=== PATIENT | male | born 1995 | race Caucasian/White ===

== ENCOUNTER 2020-05-20 03:14 | Emergency (ER) | payer OTHER ==
[~2020-05-20] VITALS: Ht 190.5 cm; Wt 79.4 kg
[2020-05-20 03:38] LABS: BASOPHILS ABSOLUTE AUTO 0.03 K/mm3 (0.00-0.23); BASOPHILS PERCENT AUTO 1 % (0-2); EOSINOPHILS ABSOLUTE AUTO 0.21 K/mm3 (0.00-0.68); EOSINOPHILS PERCENT AUTO 3 % (0-6); Hematocrit 44.7 % (37.0-53.0); Hemoglobin 15.3 g/dL (13.5-17.5); IMMATURE GRAN ABSOLUTE AUTO 0.01 K/mm3 (0.00-0.10); IMMATURE GRAN PERCENT AUTO 0 % (0-1); LYMPHOCYTES ABSOLUTE AUTO 2.92 K/mm3 (0.84-5.20); LYMPHOCYTES PERCENT AUTO 45 % (21-46); MONOCYTES ABSOLUTE AUTO 0.48 K/mm3 (0.16-1.47); MONOCYTES PERCENT AUTO 7 % (4-13); Mean Corpuscular HGB 29.9 pg (26.0-34.0); Mean Corpuscular HGB Conc 34.2 g/dL (31.5-36.5); Mean Corpuscular Volume 88 fL (80-100); Mean Platelet Volume 11.1 fL (9.1-12.4); NEUTROPHILS PERCENT AUTO 44 % (41-73); Platelet Count 163 K/mm3 (150-400); RDW Coefficient Variation 11.7 % (11.7-14.2); RDW Standard Deviation 37.4 fL (35.1-46.3); Red Blood Cell Count 5.11 M/mm3 (4.30-5.90); White Blood Cell Count 6.55 K/mm3 (4.00-11.30)
[2020-05-20] MEDS ORDERED: Vitamin B-121000 MCG PO (03:45)
[2020-05-20] MEDS ORDERED: THERA-D2000 UNIT PO (03:45)
[2020-05-20] MEDS ORDERED: ASCO500 PO (03:46)
[2020-05-20 04:01] LABS: Alanine Aminotransfer (ALT/SGP 30 U/L (12-78); Albumin, Blood 4.3 g/dL (3.4-5.0); Albumin/Globulin Ratio 1.5 (0.8-1.8); Alk Phos 44 U/L (50-136); Anion Gap 8 mmol/L (6-16); Aspartate Aminotrans (AST/SGOT 13 U/L (12-37); Bilirubin, Total 0.5 mg/dL (0.1-1.0); Blood Urea Nitrogen 13 mg/dL (8-24); Bun/Creatinine Ratio 14.5 (12.0-20.0); CO2, Blood 25 mmol/L (21-32); CPK Creatine Kinase 129 U/L (39-308); Chloride, Blood 108 mmol/L (98-108); Globulin, Blood 2.9 g/dL (2.2-4.0); Glomerular Filtration Rate >60 (60-); Glucose, Blood 118 mg/dL (70-99); Magnesium, Blood 2.3 mg/dL (1.6-2.4); Potassium, Blood 3.3 mmol/L (3.5-5.5); Sodium, Blood 141 mmol/L (136-145); Total Protein, Blood 7.2 g/dL (6.4-8.2)
[2020-05-20 04:10] LABS: Creatine Kinase MB <1.0 ng/mL (0.0-3.6); Creatine Kinase MB Index Unable to Calculate (0.0-4.0)
== END 2020-05-20 05:48 | disposition home or self-care (01) ==
LOC: ER 03:14
PROVIDERS: Emergency Medicine
DX: F41.9 Anxiety disorder, unspecified (principal); Z79.899 Other long term (current) drug therapy
CPT/HCPCS: 80053; 82550; 82553; 83605; 83735; 85025; 93005; 93010; 96372; 99284-25; J3486; J7030

== ENCOUNTER 2020-12-03 16:24 | Emergency (ER) | payer OTHER ==
[~2020-12-03] VITALS: Ht 190.5 cm; Wt 78.5 kg
[~2020-12-03 16:24] MED LIST: ASCO500 PO; THERA-D2000 UNIT PO; Vitamin B-121000 MCG PO
== END 2020-12-03 17:43 | disposition home or self-care (01) ==
LOC: ER 16:24
DX: F41.0 Panic disorder [episodic paroxysmal anxiety] (principal)
CPT/HCPCS: 93005; 93010; 99283-25; A9270

== ENCOUNTER 2020-12-07 05:36 | Emergency (ER) | payer OTHER ==
[~2020-12-07] VITALS: Ht 190.5 cm; Wt 77.1 kg
[2020-12-07] MEDS ORDERED: HYDPAM50 PO (06:17)
--- NOTE | 2020-12-07 09:24 | NUR ---
Patient is sitting up in bed and alert. Patient is rubbing his forearms and hands. Patient talks about his stressors and the situations and people that contribute to him feeling vulnerable at this time. We talk about the importance of self-care and the depth of what that might look like for him (medically, psychologically, socially, emotionally and spiritually). I address the emotional/spiritual aspects. Patient tells me about the "spiritual harding" that he feels he is in and the indicators for him that give him this impression. We discuss his Taoism belief system and the methods that he has been taught in relation to "spiritual warfare." We look at the practices that help him feel grounded and the scriptures that might apply to his fears and concerns. We develop a plan for moving forward on helping him in the area of spiritual health. I normalize patient's struggles, reinforce helpful attitudes and practices and provide therapeutic listening, pastoral alcohol and drug counselor, recitation of scripture and prayer. Patient responds well and shows signs of reduced anxiety. Patient voices appreciation for the alcohol and drug counselor and time.
[2020-12-07] MEDS ORDERED: MIRT15 PO (11:43)
[2020-12-07] MEDS ORDERED: HYDHCL25 PO (11:43)
== END 2020-12-07 11:51 | disposition home or self-care (01) ==
LOC: ER 05:36
DX: F41.1 Generalized anxiety disorder (principal); G47.00 Insomnia, unspecified; Z79.899 Other long term (current) drug therapy
CPT/HCPCS: 99284; A9270; Q3014

== ENCOUNTER 2021-09-11 17:02 | Emergency (ER) | payer OTHER ==
[~2021-09-11] VITALS: Ht 177.8 cm; Wt 70.3 kg
[~2021-09-11 17:02] MED LIST changes: +HYDHCL25 PO; +HYDPAM50 PO; +MIRT15 PO
[2021-09-11] MEDS ORDERED: CLON1 PO (18:59)
== END 2021-09-11 19:37 | disposition home or self-care (01) ==
LOC: ER 17:02
DX: F41.0 Panic disorder [episodic paroxysmal anxiety] (principal)
CPT/HCPCS: A9270